=== PATIENT | male | born 1960 | race Caucasian/White ===

== ENCOUNTER 2017-07-20 06:07 | Day surgery (SDC) | payer OTHER ==
[~2017-07-20 06:07] MED LIST: CEFAZOLIN 2 GM-D5W BAG** 2 GM/50 ML ML IV ONE; Lactated Ringers 1,000 ML IV ONE
[2017-07-20] MEDS ORDERED: SUBLIMAZE 100 MCG/2 ML IV ONE (06:08)
[2017-07-20] MEDS ORDERED: Zofran 4 MG/2 ML VIAL IV ONE (06:08)
[2017-07-20] MEDS ORDERED: TORAdol 30 mg Injection IV ONE (06:08)
[2017-07-20] MEDS ORDERED: Decadron 4 MG INJ IV ONE (06:08)
[2017-07-20] MEDS ORDERED: DIPRIVAN 200 MG/20 ML IV ONE (06:08)
[2017-07-20] MEDS ORDERED: Lactated Ringers 1,000 ML IV SCH (06:30)
[2017-07-20] MEDS ORDERED: Sensorcaine 0.25% 10 ML ONE (06:33)
[2017-07-20] MEDS ORDERED: XYLOCAINE 1%/Epi 1:100000 MDV 20 ML ONE (07:47)
[2017-07-20 08:53] VITALS: O2SAT 95
[2017-07-20 09:43] VITALS: BP 155/81; PULSE 76
--- NOTE | 2017-07-20 15:49 | OP ---
This operation was performed at [facility] but the report was dictated at [place], [place] on 07/20/2017 at 0817 hours. SURGERY DATE/TIME 07/20/2017 0745 PREOPERATIVE DIAGNOSIS: Right knee foreign body. POSTOPERATIVE DIAGNOSIS: Right knee foreign body. PROCEDURE: Foreign body removal right knee. SURGEON: Armando Sevilla M.d. HEAVY MACHINERY OPERATOR: Carmen. COMPLICATIONS: None. ESTIMATED BLOOD LOSS: Less than 10 cc. TOURNIQUET TIME: Tourniquet time was 10 minutes at 275 mm of Mercury, ITEM REMOVED: 1.5 inch piece of 16-gauge wire. No associated pus. Cultures were taken. INDICATIONS FOR PROCEDURE: The patient is a 57 year-old gentleman who has knee arthritis on the right side, but also had a foreign body that was stuck in the medial portion of the right knee proximal to the patella. He had an x-ray showing this foreign body. He wanted it removed, as he was having some pain around the area. He denied any fever, nausea or vomiting. He did have tricompartmental arthritis which was causing pain in the knee as well. However, we elected to proceed with foreign body removal of the right knee. We discussed the risks, benefits, alternatives to surgery. Risks include bleeding, infection, need for further surgery, continued pain, damage to the nerves, arteries, veins around the surgery. The alternatives included nonoperative treatment. Patient elected to have the foreign body removed operatively. DESCRIPTION OF PROCEDURE AND FINDINGS: The patient was seen in the preoperative area. The right knee was marked. He signed his consent for the above-stated procedure. He was taken back to the operative suite, laid supine on a regular table. He was intubated by Anesthesia. All bony prominences were padded. Preoperative antibiotics were held to allow for cultures. We used C-arm fluoroscopy to nilsa out the location of the foreign body. We then made an incision approximately 1 inch in length over the foreign body, incised the skin with a 15-blade scalpel, dissected using pickups and tenotomy scissors and Bovie electrocautery for hemostasis. We identified the wire fragment and we were able to remove it using a hemostat. The area left as a void after removing the wire was cultured. No pus was encountered. No significant foreign body reaction was seen. We then gave the antibiotics. We irrigated the wound. We closed it with 2-0 Vicryl suture. We closed the tissue with 3-0 Monocryl, with Steri-Strips on the skin. Sterile dressing composed of Adaptic, 4x4s, ABDs, sterile gauze, cast padding, and Bossman wrap were applied to the knee. Patient was extubated in the operating room and taken to the Post Anesthetic Care Unit in stable condition. A total of 20 cc of 1% lidocaine with epinephrine was used on the knee for pain control. PLAN: The plan for the patient will be to bear weight as tolerated. Activity as tolerated. He may return to full duty at work starting this coming Monday. The sponge and needle counts were correct. He will be discharged home once he meets criteria.
--- NOTE | 2017-07-21 08:05 | XRAY ---
Exam: AP C-arm image of the right knee from 1814 hrs. on 07/20/2017. Comparison: Upright 3 view right knee series from 07/04/2017. Indication: Foreign body removal. Findings: 6 seconds of fluoroscopy time was used intraoperatively. A single AP C-arm image including the distal right femur/thigh and a very small portion of the right knee joint was obtained. The curvilinear metallic foreign body density projected just medial to the distal right femoral shaft is no longer seen. Minimal soft tissue air is seen at the site where the foreign body was previously located. Most of the right knee joint space is not included on this image. Impression: 1. Successful removal of 2.1 cm in diameter thin metallic apparent wire fragment from the soft tissues medial to the distal right femur..
--- NOTE | 2017-07-24 14:36 | XRAY ---
6 seconds fluoroscopy time in surgery for foreign body removal.
== END 2017-07-20 09:53 | disposition home or self-care (01) ==
LOC: SDC 06:07
PROVIDERS: ATTEND Orthopaedic Surgery
PROC: 0JCN0ZZ Extirpation of Matter from Right Lower Leg Subcutaneous Tissue and Fascia, Open Approach (ICD-10-PCS; principal; 2017-07-20)
DX: S81.041A Puncture wound with foreign body, right knee, initial encounter (principal); X58.XXXA Exposure to other specified factors, initial encounter
CPT/HCPCS: 01382; 73560; 76000; 87070; J0690; J1100; J1885; J2405; J2704; J3010

== ENCOUNTER 2018-05-08 07:18 | Emergency (ER) | payer OTHER ==
[2018-05-08] MEDS ORDERED: BABY ASPIRIN 81 MG CHEW PO ONE (07:27)
[2018-05-08] MEDS ORDERED: Nitrostat 0.4 MG (ED) SL ONE ×2 (07:27→07:35)
--- NOTE | 2018-05-08 07:27 | ERPHSYRPT ---
- History of Present Illness Time Seen by Provider: 05/08/18 07:25 Historian: patient, family Physician History: 58 y/o diabetic white male s/p 3v cabg 01/08/18, presents with one day h/o intermittent left chest pain. pt is on plavix and asa but did not take asa this am. pts pain today began at 0500. pt describes pain as a pressure or achiness without radiation. pt denies soa and pain is a 6/10. pt did have diaphoresis and one episode of n/v yesterday. pts ciaio counter molder is dr. mcgee and cardiothoracic surgeon at [facility] Timing/Duration: yesterday Activities at Onset: activity (physical rehab) Quality: aching, pressure Location: other (left chest ) Chest Pain Radiation: no radiation Severity of Pain-Max: moderate Severity of Pain-Current: moderate Associated Symptoms: nausea, vomiting, diaphoresis, No palpitations, No abdominal pain, No shortness of breath, No cough, No hurts to breathe, No weakness, No headache, No dizziness Prior Chest Pain/Cardiac Workup: cardiac cath, heart attack, recent hospitalization (3 v cabg 01/08/18) Nitro Today/Relief: no nitro taken today Aspirin Treatment Today: no aspirin today Allergies/Adverse Reactions: No Known Drug Allergies Allergy (Verified 07/20/17 06:12) Home Medications: Aspirin 81 mg PO DAILY 10/14/12 [History] Multivitamin [Men's Multi-Vitamin] 1 each PO DAILY 10/14/12 [History] Omeprazole [Prilosec] 10 mg PO DAILY 11/17/12 [History] Metformin HCl 500 mg [Glucophage 500 MG] 500 mg PO BID 07/19/17 [History] metHOTREXate sodium [Methotrexate] 2.5 mg PO DAILY 07/19/17 [History] Atorvastatin Calcium [Lipitor] 80 mg PO DAILY 05/08/18 [History] Clopidogrel Bisulfate [Clopidogrel] 75 mg PO DAILY 05/08/18 [History] Metoprolol Tartrate 50 mg [Lopressor 50 MG] 50 mg PO DAILY 05/08/18 [ History] Hx Tetanus, Diphtheria Vaccination/Date Given: Yes Hx Influenza Vaccination/Date Given: Yes Hx Pneumococcal Vaccination/Date Given: No - Review of Systems Constitutional: No Symptoms Eyes: No Symptoms Ears, Nose, & Throat: No Symptoms Respiratory: No Symptoms, No Cough, No Dyspnea, No Stridor, No Wheezing Cardiac: Chest Pain, No Palpitations, No Syncope Abdominal/Gastrointestinal: Nausea, Vomiting, No Abdominal Pain, No Diarrhea, No Constipation Genitourinary Symptoms: No Symptoms, No Dysuria, No Frequency, No Hematuria Musculoskeletal: No Symptoms Skin: No Symptoms Neurological: No Symptoms Psychological: No Symptoms Endocrine: No Symptoms Hematologic/Lymphatic: No Symptoms Immunological/Allergic: No Symptoms All Other Systems: Reviewed and Negative - Past Medical History Pertinent Past Medical History: Yes Neurological History: Other ENT History: No Pertinent History Cardiac History: Other Respiratory History: Sleep Apnea Endocrine Medical History: Diabetes Type II Musculoskeletal History: Osteoarthritis, Rheumatoid Arthritis GI Medical History: GERD History: Other Psycho-Social History: No Pertinent History Male Reproductive Disorders: No Pertinent History Other Medical History: Hear cath, charcot-diana tooth, kidney stones - Past Surgical History Past Surgical History: Yes Neuro Surgical History: No Pertinent History Cardiac: Cardiac Catheterization, Other Respiratory: No Pertinent History Gastrointestinal: Hernia Repair Genitourinary: No Pertinent History Musculoskeletal: Orthopedic Surgery Male Surgical History: No Pertinent History Other Surgical History: rotator cuff repair, lt elbow, rt ft, shira knee arthroplasty, lt hernia, foot surgery. - Social History Smoking Status: Never smoker Exposure to second hand smoke: No Drug Use: none Patient Lives Alone: No Significant Family History: no pertinent family hx - Nursing Vital Signs Nursing Vital Signs: Initial Vital Signs Temperature 97.7 F 05/08/18 07:21 Pulse Rate 70 05/08/18 07:21 Respiratory Rate 16 05/08/18 07:21 Blood Pressure 179/98 05/08/18 07:21 O2 Sat by Pulse Oximetry 97 05/08/18 07:21 Pain Scale Pain Intensity 4 - Physical Exam General Appearance: mild distress, alert, anxiety Eye Exam: PERRL/EOMI, eyes nml inspection Ears, Nose, Throat Exam: normal ENT inspection Neck Exam: normal inspection, non-tender, supple, full range of motion Respiratory Exam: normal breath sounds, chest tenderness, lungs clear, airway intact, No respiratory distress, No accessory muscle use, No rhonchi, No wheezing, No stridor Cardiovascular Exam: regular rate/rhythm, normal heart sounds, normal peripheral pulses Gastrointestinal/Abdomen Exam: soft, normal bowel sounds, No tenderness, No distention, No mass, No guarding Rectal Exam: not done Back Exam: normal inspection, normal range of motion, No CVA tenderness Extremity Exam: normal inspection, normal range of motion, pelvis stable Neurologic Exam: alert, oriented x 3, cooperative, processing analyst II-XII nml as tested Skin Exam: normal color, warm, dry Lymphatic Exam: No adenopathy - Course Nursing assessment & vital signs reviewed: Yes EKG Interpreted by Me: RATE (71), Sinus Rhythm, NORMAL AXIS, NORMAL INTERVALS, NORMAL QRS, Other (no sig change from ekg dated 07/18/17) Ordered Tests: Active Orders 24 hr Category Date Time Status Network Analyst STAT Care 05/08/18 07:27 Active EKG-ER Only STAT Care 05/08/18 07:27 Active IV Insertion STAT Care 05/08/18 07:27 Active Pulse Oximetry (ED) STAT Care 05/08/18 07:27 Active CHEST 1 VIEW (PORTABLE) Stat Exams 05/08/18 07:27 Completed CHEST WITH CONTRAST [CT] Stat Exams 05/08/18 08:16 Completed GALLBLADDER [US] Stat Exams 05/08/18 09:31 Completed CBC W DIFF Stat Lab 05/08/18 07:45 Completed CMP Stat Lab 05/08/18 07:45 Completed D-DIMER QUANTITATION Stat Lab 05/08/18 07:45 Completed NT PRO BNP Stat Lab 05/08/18 07:45 Completed PROTIME WITH INR Stat Lab 05/08/18 07:45 Completed TROPONIN Q3H Lab 05/08/18 07:45 Completed TROPONIN Q3H Lab 05/08/18 10:28 Completed TROPONIN Q3H Lab 05/08/18 13:30 Ordered TROPONIN Q3H Lab 05/08/18 16:30 Ordered TROPONIN Q3H Lab 05/08/18 19:30 Ordered Medication Summary Generic Name Dose Route Start Last Admin Trade Name Freq PRN Reason Stop Dose Admin Sodium Chloride 1,000 mls @ 100 mls/hr 05/08/18 07:30 05/08/18 07:37 Sodium Chloride 0.9% 1000 Ml IV 06/07/18 07:29 100 mls/hr .Q10H HARRY Administration Discontinued Medications Generic Name Dose Route Start Last Admin Trade Name Freq PRN Reason Stop Dose Admin Aspirin 324 mg 05/08/18 07:27 05/08/18 07:37 Baby Aspirin 81 Mg Chew PO 05/08/18 07:28 324 mg STAT ONE Administration Aspirin Confirm 05/08/18 07:35 Baby Aspirin 81 Mg Chew Administered 05/08/18 07:36 Dose 324 mg .ROUTE .STK-MED ONE Morphine Sulfate 2 mg 05/08/18 07:32 05/08/18 07:38 Morphine Sulfate 2 Mg Inj IV 05/08/18 07:33 2 mg STAT ONE Administration Morphine Sulfate Confirm 05/08/18 07:35 Morphine Sulfate 2 Mg Inj Administered 05/08/18 07:36 Dose 2 mg .ROUTE .STK-MED ONE Nitroglycerin 0.4 mg 05/08/18 07:27 05/08/18 07:37 Nitrostat 0.4 Mg (Ed) SL 05/08/18 07:28 0.4 mg STAT ONE Administration Nitroglycerin Confirm 05/08/18 07:35 Nitrostat 0.4 Mg (Ed) Administered 05/08/18 07:36 Dose 0.4 mg SL .STK-MED ONE Ondansetron HCl 4 mg 05/08/18 07:31 05/08/18 07:38 Zofran 4 Mg/2 Ml Vial IV 05/08/18 07:32 4 mg STAT ONE Administration Ondansetron HCl Confirm 05/08/18 07:35 Zofran 4 Mg/2 Ml Vial Administered 05/08/18 07:36 Dose 4 mg .ROUTE .STK-MED ONE Lab/Rad Data: Laboratory Result Diagrams 05/08/18 07:45 05/08/18 07:45 Laboratory Results 05/08/18 05/08/18 05/08/18 Range/Units 10:28 07:45 07:45 WBC (4.0-10.5) K/mm3 RBC (4.1-5.6) M/mm3 Hgb (12.5-18.0) gm/dl Hct (42-50) % MCV (78-100) fl MCH (26-32) pg MCHC (32-36) g/dl RDW (11.5-14.0) % Plt Count (150-450) K/mm3 MPV (6-9.5) fl Gran % (36.0-66.0) % Eos # (Auto) (0-0.5) Absolute Lymphs (auto) (1.0-4.6) Absolute Monos (auto) (0.0-1.3) Lymphocytes % (24.0-44.0) % Monocytes % (0.0-12.0) % Eosinophils % (0.00-5.0) % Basophils % (0.0-0.4) % Absolute Granulocytes (1.4-6.9) Basophils # (0-0.4) PT 12.5 (8.83-12.87) SECONDS INR 1.07 (0.8-3.0) D-Dimer 1104 H* (215-500) ng/mL Sodium (137-145) mmol/L Potassium (3.5-5.1) mmol/L Chloride (98-107) mmol/L Carbon Dioxide (22-30) mmol/L Anion Gap (5-15) MEQ/L BUN (9-20) mg/dL Creatinine (0.66-1.25) mg/dL Estimated GFR ML/MIN Glucose (74-106) mg/dL Calcium (8.4-10.2) mg/dL Total Bilirubin (0.2-1.3) mg/dL AST (17-59) U/L ALT (0-50) U/L Alkaline Phosphatase (38-126) U/L Troponin I < 0.012 < 0.012 (0.000-0.034) ng/mL NT-Pro-B Natriuret Pep (0-900) pg/mL Serum Total Protein (6.3-8.2) g/dL Albumin (3.5-5.0) g/dL 05/08/18 05/08/18 Range/Units 07:45 07:45 WBC 8.9 (4.0-10.5) K/mm3 RBC 5.14 (4.1-5.6) M/mm3 Hgb 15.8 (12.5-18.0) gm/dl Hct 45.6 (42-50) % MCV 88.7 (78-100) fl MCH 30.7 (26-32) pg MCHC 34.6 (32-36) g/dl RDW 14.7 H (11.5-14.0) % Plt Count 181 (150-450) K/mm3 MPV 10.3 H (6-9.5) fl Gran % 79.8 H (36.0-66.0) % Eos # (Auto) 0.23 (0-0.5) Absolute Lymphs (auto) 0.96 L (1.0-4.6) Absolute Monos (auto) 0.57 (0.0-1.3) Lymphocytes % 10.8 L (24.0-44.0) % Monocytes % 6.4 (0.0-12.0) % Eosinophils % 2.6 (0.00-5.0) % Basophils % 0.4 (0.0-0.4) % Absolute Granulocytes 7.13 H (1.4-6.9) Basophils # 0.04 (0-0.4) PT (8.83-12.87) SECONDS INR (0.8-3.0) D-Dimer (215-500) ng/mL Sodium 142 (137-145) mmol/L Potassium 4.0 (3.5-5.1) mmol/L Chloride 103 (98-107) mmol/L Carbon Dioxide 26 (22-30) mmol/L Anion Gap 16.4 H (5-15) MEQ/L BUN 13 (9-20) mg/dL Creatinine 0.90 (0.66-1.25) mg/dL Estimated GFR > 60.0 ML/MIN Glucose 229 H (74-106) mg/dL Calcium 9.8 (8.4-10.2) mg/dL Total Bilirubin 0.70 (0.2-1.3) mg/dL AST 22 (17-59) U/L ALT 27 (0-50) U/L Alkaline Phosphatase 145 H (38-126) U/L Troponin I (0.000-0.034) ng/mL NT-Pro-B Natriuret Pep 108 (0-900) pg/mL Serum Total Protein 7.7 (6.3-8.2) g/dL Albumin 4.4 (3.5-5.0) g/dL - Progress Progress: improved Air Movement: good Progress Note: 05/08/18 11:[address] jose r joseph. i reviewed pt hx, condition, lab, ekg, xray findings. he recommends ok to discharge to home. he will arrange outpt eval/tx for acalculous cholecystitis Blood Culture(s) Obtained: No Antibiotics given: No Counseled pt/family regarding: lab results, diagnosis, need for follow-up, rad results - Departure Time of Disposition: 11:22 Departure Disposition: Home Clinical Impression: Acalculous cholecystitis Condition: Good Critical Care Time: No Referrals: NORHT JOSEPH [Primary Care Provider] - Additional Instructions: avoid fatty, greasy spicy foods. follow up with dr. jose r joseph for further management. drink plenty of fluids.
[2018-05-08] MEDS ORDERED: Sodium Chloride 0.9% 1000 ML 1,000 ML IV SCH (07:30)
[2018-05-08] MEDS ORDERED: Zofran 4 MG/2 ML VIAL IV ONE (07:31)
[2018-05-08] MEDS ORDERED: MORPHINE SULFATE 2 MG INJ IV ONE (07:32)
[2018-05-08] MEDS ORDERED: BABY ASPIRIN 81 MG CHEW ONE (07:35)
[2018-05-08] MEDS ORDERED: Zofran 4 MG/2 ML VIAL ONE (07:35)
[2018-05-08] MEDS ORDERED: MORPHINE SULFATE 2 MG INJ ONE (07:35)
[2018-05-08] MEDS ORDERED: Sodium Chloride 0.9% 1000 ML 1,000 ML ONE (07:35)
[2018-05-08 07:58] LABS: BASOPHIL % 0.4 % (0.0-0.4); Basophil (Absolute #) 0.04 (0-0.4); Eosinophil % 2.6 % (0.00-5.0); Eosinophil (Absolute #) 0.23 (0-0.5); Granulocyte Absolute (ANC) 7.13 (1.4-6.9); Granulocytes % 79.8 % (36.0-66.0); Hematocrit 45.6 % (42-50); Hemoglobin 15.8 gm/dl (12.5-18.0); Lymphocyte (Absolute #) 0.96 (1.0-4.6); Lymphocytes % 10.8 % (24.0-44.0); Mean Cell Volume 88.7 fl (78-100); Mean Corpuscular Hemoglobin 30.7 pg (26-32); Mean Corpuscular Hgb Concent. 34.6 g/dl (32-36); Mean Platelet Volume 10.3 fl (6-9.5); Monocyte (Absolute #) 0.57 (0.0-1.3); Monocytes % 6.4 % (0.0-12.0); Platelet Count 181 K/mm3 (150-450); Red Blood Count 5.14 M/mm3 (4.1-5.6); Red Cell Distribution Width 14.7 % (11.5-14.0); White Blood Count 8.9 K/mm3 (4.0-10.5)
[2018-05-08 08:03] LABS: INR 1.07 (0.8-3.0)
[2018-05-08 08:45] LABS: ALBUMIN 4.4 g/dL (3.5-5.0); ALKALINE PHOSPHATASE 145 U/L (38-126); ANION GAP 16.4 MEQ/L (5-15); BLOOD UREA NITROGEN 13 mg/dL (9-20); CHLORIDE 103 mmol/L (98-107); Calcium 9.8 mg/dL (8.4-10.2); Carbon Dioxide 26 mmol/L (22-30); Glucose 229 mg/dL (74-106); NT PRO BNP 108 pg/mL (0-900); SGOT/AST 22 U/L (17-59); SGPT/ALT 27 U/L (0-50); SODIUM 142 mmol/L (137-145); Total Protein 7.7 g/dL (6.3-8.2)
--- NOTE | 2018-05-08 08:53 | XRAY ---
Indication: Left chest pain, cough, nausea, and vomiting. Comparison: None Portable chest is clear with incidental tiny left lung calcified granuloma. Heart is not enlarged with previous CABG surgery. Bony thorax intact with mild osteopenia and degenerative changes. Impression: Nonacute chest with chronic features.
--- NOTE | 2018-05-08 09:20 | XRAY ---
Indication: Chest pain, short of breath, and vomiting. D-dimer 1104. Multiple contiguous axial images obtained through the chest using 80 cc Isovue 370 contrast and PE protocol. Comparison: None There is good opacification of the pulmonary arteries to include the lobar and segmental branches. No filling defect or pulmonary embolus. Heart is not enlarged and demonstrates previous CABG surgery. Aorta is normal in course and caliber. No pathologic mediastinal/hilar lymphadenopathy. Examination of the lung parenchyma demonstrates mild bilateral dependent atelectasis. No suspicious pulmonary mass, infiltrate, or effusion. Bony thorax intact with minimal degenerative changes throughout the spine, sternotomy wires, and moderate degenerative changes of both shoulders. Limited upper abdomen demonstrates abnormal distended gallbladder with wall thickening/stranding but no gallstones concerning for acalculous cholecystitis. Mild descending duodenal wall thickening/stranding presumed reactive to gallbladder disease. Mild fatty liver, 13.3 cm splenomegaly, and 1 cm right renal cyst. Impression: 1. Negative pulmonary embolus. No acute cardiopulmonary abnormalities. 2. Abnormal gallbladder as detailed concerning for acalculous cholecystitis. Suspect reactive descending duodenitis. Gallbladder sonogram may yield further information. 3. Fatty liver, splenomegaly, and right renal cyst. CT DI 19.13
[2018-05-08 10:10] VITALS: O2SAT 98
--- NOTE | 2018-05-08 10:29 | XRAY ---
Indication: Abnormal gallbladder on same-day CT. Two-dimensional gallbladder sonogram performed. Comparison: None Gallbladder moderately distended without gallstones. There is gallbladder wall thickening measuring 3.1 mm with tiny pericholecystic fluid concerning for acalculous cholecystitis. Common bile duct measures 4 mm. No intrahepatic biliary distention. Remaining visualized portions of the liver, pancreas, and right kidney appear sonographically unremarkable. Right kidney measures 10.1 cm in length. Impression: Distended gallbladder with wall thickening and pericholecystic fluid but no gallstones. Rule out acalculous cholecystitis.
[2018-05-08 11:48] VITALS: BP 126/81; PULSE 62
== END 2018-05-08 11:56 | disposition home or self-care (01) ==
LOC: ED 07:18
DX: K81.9 Cholecystitis, unspecified (principal); R11.2 Nausea with vomiting, unspecified; R61 Generalized hyperhidrosis; E11.9 Type 2 diabetes mellitus without complications; Z95.1 Presence of aortocoronary bypass graft; Z79.01 Long term (current) use of anticoagulants; Z79.899 Other long term (current) drug therapy; I25.2 Old myocardial infarction; Z79.84 Long term (current) use of oral hypoglycemic drugs
CPT/HCPCS: 36000; 36415; 71045; 71260; 76705; 80053; 83880; 84484; 85025; 85379; 85610; 93005; 93041; 96360; 96374; 96375; 99285; J2270; J2405; A9270-GY

== ENCOUNTER 2023-10-06 07:05 | Day surgery (SDC) | payer OTHER ==
[~2023-10-06 07:05] MED LIST changes: -CEFAZOLIN 2 GM-D5W BAG** 2 GM/50 ML ML IV ONE; -Lactated Ringers 1,000 ML IV ONE; +Naropin 0.5% 30 ML VIAL*** 123.125 MG, TORAdol 30 mg Injection*** 15 MG, Epinephrine Pr... IV ONE
[2023-10-06] MEDS ORDERED: CEFAZOLIN 2 GM-D5W BAG** 2 GM/50 ML ML IV ONE (07:11)
[2023-10-06] MEDS ORDERED: Lactated Ringers 1,000 ML IV ONE ×3 (07:11→12:06)
[2023-10-06] MEDS ORDERED: TYLENOL EXTRA STRENGTH 500 MG ONE (07:19)
[2023-10-06] MEDS ORDERED: Decadron 4 MG ONE (07:20)
[2023-10-06] MEDS ORDERED: NEURONTIN ONE (07:20)
[2023-10-06] MEDS ORDERED: celeBREX 100 MG ONE (07:20)
[2023-10-06] MEDS: TYLENOL EXTRA STRENGTH 500 MG PO ONE (07:21)
[2023-10-06] MEDS: celeBREX 100 MG PO ONE (07:22)
[2023-10-06] MEDS: Decadron 4 MG PO ONE (07:22)
[2023-10-06] MEDS: NEURONTIN PO ONE (07:22)
[2023-10-06] MEDS: Lactated Ringers 1,000 ML IV SCH (07:26)
[2023-10-06] MEDS: CEFAZOLIN 2 GM-D5W BAG** 2 GM/50 ML ML IV SCH (07:27)
[2023-10-06 07:31] VITALS: RESP 18
[2023-10-06] MEDS ORDERED: Versed 2 MG/2 ML Injection ONE (09:14)
[2023-10-06] MEDS ORDERED: Naropin 0.5% 30 ML VIAL ONE (09:16)
[2023-10-06] MEDS ORDERED: Decadron 4 MG INJ ONE (09:16)
[2023-10-06] MEDS ORDERED: SUBLIMAZE 100 MCG/2 ML ONE ×2 (10:31→13:32)
[2023-10-06] MEDS ORDERED: TRANEXAMIC 1,000 MG/100ML-NACL 1,000 MG/100 ML PIGGYBACK IV ONE (10:56)
[2023-10-06] MEDS ORDERED: Ephedrine Sulfate 50 MG/ML ONE (12:24)
[2023-10-06] MEDS ORDERED: PHENYLEPHRINE HCL ONE (12:24)
[2023-10-06] MEDS ORDERED: DIPRIVAN 200 MG/20 ML IV ONE (12:25)
[2023-10-06] MEDS ORDERED: Hydromorphone 1 mg/ml Injection ONE (13:41)
--- NOTE | 2023-10-06 14:19 | XRAY ---
Indication: Follow-up surgery. Comparison: September 05, 2023 Portable AP/crosstable lateral left knee demonstrates interval total knee arthroplasty with intact prosthesis. Also new postoperative soft tissue swelling, soft tissue emphysema, and anterior cutaneous andrew. Stable osteopenia and extensive vascular calcifications.
[2023-10-06 14:41] VITALS: BP 110/61; PULSE 80; TEMP 97.1; O2SAT 92
--- NOTE | 2023-10-09 11:24 | OP ---
PROCEDURE DATE/TIME: 10/06/2023 1053 PREOP DIAGNOSES: Left knee rheumatoid arthritis. POSTOP DIAGNOSES: Left knee rheumatoid arthritis. PROCEDURE: Left total knee replacement ATTENDING PHYSICIAN: Aamir Anthony M.D. SUSTAINABLE DEVELOPMENT POLICY ANALYST: Devora Horton. ANESTHESIA: General plus spinal plus adductor canal block. IMPLANTS: Aliya Persona for standard PS femur 12 poly, an E tibia, a 14 x 30 mm short stem and a 32 mm patella, which is 8.5 mm thick. FINDINGS: Severe patellofemoral and medial compartment degenerative joint disease with bone on bone and large osteophytes. ESTIMATED BLOOD LOSS: 100 cc. SPECIMEN: None. DRAIN: None. FLUIDS: Per anesthesia record. TOURNIQUET TIME: 63 minutes. COMPLICATIONS: None. INDICATIONS FOR PROCEDURE: The patient is a 63-year-old white male with painful left knee refractory to conservative care. He wished to have this replaced for pain relief. DESCRIPTION OF PROCEDURE: Patient seen in holding room. Identified the left knee as correct and this initialed by me. He had anesthesia and then 2 gm of Kefzol and 1000 mg of tranexamic acid. He was taken to the OR where he had spinal anesthesia and LMA airway. He had a block. He was positioned supine with a bump under his left hip, had sterile prep and drape to the left lower extremity. Tourniquet was inflated on upper thigh to 250 mm of Mercury. Total tourniquet time was 63 minutes. A midline incision was made medial through the tibia tubercle to about 6 cm above superior pole of the patella A medial parapatellar approach was made splitting the quadriceps tendon 10%/90%. The patella was everted. The fat pad was excised about 50%. The patella was fairly deformed with decreased thickness at the inferior pole. Difficulty of the Aliya reamer therefore the patella was cut by hand using a saw trying to take off the same thickness of bone as the patella implant which is 8.5 mm. The drill was then drilled down the center of the femoral and tibial canal. The guidewire was placed on the femur with 5 of valgus for left knee, a 10 mm distal cut was made. The tibia is then prepared with 5 posterior slit taking 4 mm off of the medial side in neutral varus. The femoral sizing guide was applied and the femur had a great deal of deformity with deficient lateral femoral condyle and minimal trochlear notch. A right side line was drawn as well as a transepicondylar access judging off right side line and off the epicondyle trying to gauge rotation. Femoral sizer was applied and set to size 4 femur left in 3 external rotation. The cutting block was applied. The anterior chamfer and posterior chamfer cuts were made. The menisci were excised. The flexion-extension gaps were checked. There was increased flexion gap on the lateral side and release was done on the medial side. The tibial base plate was applied in line with the medial third tibia tubercle this was pinned in place. The femur size 4 was applied and then a trial medial congruent poly is used. There was increased deep gapping with deep flexion on the lateral side of about 3 to 4 mm of some lift off. Therefore, it was decided that we would need PS or more constrained field. The notch cut was deepened with the guide to allow for the PS femur. The PS femur trial was tried. The CCK side to tight in the box with too much friction and it was decided on the PS. Therefore, the lug nuts were drilled out on the femoral component. Tibia was reamed to a depth of the stem and the Keel punch was used. The patellar button was reamed with a guide with three holes. The trial patella had been tried and did track well. The bony surfaces were irrigated and dried. The femoral canal was plugged with bone plug. The ropivacaine solution 60 cc was injected circumferentially around the capsule. Two batches of Biomet bone cement was mixed in a vacuum condition and then injected on the bony structures with a gun and onto the components. The tibial component applied first and then the femoral component, set in full extension with 10 mm spacer. Patellar button was placed and held with a clamp. The tourniquet was released. Hemostasis was obtained with electrocautery. All cement had hardened and excess cement was trimmed off. The knee was thoroughly irrigated and the knee retried and it was felt we could give it 12 mm PS spacer to take up some of the space in the lateral compartment this was replaced by the true 12 mm PS component with good patella tracking. The knee was felt stable in varus and valgus stressing but did have 3 to 4 mm lift off with extreme flexion. The knee flex about 105. The knee was thoroughly irrigated again. Tourniquet had been dropped after components were placed and there was minimal bleeding. The medial parapatellar approach was closed with interrupted #2 MaxBraid suture and then subcu with 2-0 Vicryl and the skin with andrew. Sterile dressings were applied. DISPOSITION: The patient will be weight bearing as tolerated. He will go home today if he is comfortable. May shower postoperative day five. [place] out in 10-12 days.
== END 2023-10-06 17:10 | disposition home or self-care (01) ==
LOC: SDC 07:05 → UNDOADMOB 14:10 → MED SURG 14:10 → EDSTATUS 14:25 → SDC 17:10
PROVIDERS: ATTEND Orthopaedic Surgery
DX: M06.862 Other specified rheumatoid arthritis, left knee (principal); E11.9 Type 2 diabetes mellitus without complications
CPT/HCPCS: 73560; 82947; J0690; J1100; J1170; J2250; J2371; J2704; J2795; J3010; A9270-GY

== ENCOUNTER 2024-02-14 08:14 | Day surgery (SDC) | payer OTHER ==
[2024-02-14] MEDS ORDERED: TRANEXAMIC 1,000 MG/100ML-NACL 1,000 MG/100 ML PIGGYBACK IV ONE (08:53)
[2024-02-14] MEDS ORDERED: TYLENOL EXTRA STRENGTH 500 MG ONE (08:53)
[2024-02-14] MEDS ORDERED: CEFAZOLIN 2 GM/100 ML NaCl 2 GM/100 ML IVPB IV ONE (08:53)
[2024-02-14] MEDS ORDERED: celeBREX 100 MG ONE (08:54)
[2024-02-14] MEDS ORDERED: Lactated Ringers 1,000 ML IV ONE (08:54)
[2024-02-14] MEDS ORDERED: Decadron 4 MG ONE (08:54)
[2024-02-14] MEDS ORDERED: NEURONTIN ONE (08:54)
[2024-02-14] MEDS: celeBREX 100 MG PO ONE (08:58)
[2024-02-14] MEDS: Decadron 4 MG PO ONE (08:59)
[2024-02-14] MEDS: NEURONTIN PO ONE (08:59)
[2024-02-14] MEDS: TYLENOL EXTRA STRENGTH 500 MG PO ONE (08:59)
[2024-02-14] MEDS: TRANEXAMIC 1,000 MG/100ML-NACL 1,000 MG/100 ML PIGGYBACK IV SCH (09:01)
[2024-02-14] MEDS: CEFAZOLIN 2 GM/100 ML NaCl 2 GM/100 ML IVPB IV SCH (09:01)
[2024-02-14] MEDS: Lactated Ringers 1,000 ML IV SCH (09:01)
[2024-02-14] MEDS ORDERED: Sodium Chloride 0.9% 1000 ML 1,000 ML ONE (09:40)
[2024-02-14] MEDS: Sodium Chloride 0.9% 1000 ML 1,000 ML IV SCH (09:45)
[2024-02-14] MEDS ORDERED: Decadron 4 MG INJ ONE (09:56)
[2024-02-14] MEDS ORDERED: Xylocaine-Mpf 2% 5 Ml Vial ONE (09:56)
[2024-02-14] MEDS ORDERED: SUBLIMAZE 100 MCG/2 ML ONE (09:57)
[2024-02-14] MEDS ORDERED: DIPRIVAN 200 MG/20 ML IV ONE ×3 (09:57→12:32)
[2024-02-14] MEDS ORDERED: Versed 2 MG/2 ML Injection ONE (09:57)
[2024-02-14] MEDS ORDERED: Ephedrine Sulfate 50 MG/ML ONE (11:35)
[2024-02-14] MEDS ORDERED: PHENYLEPHRINE HCL ONE (11:55)
[2024-02-14] MEDS ORDERED: Zofran 4 MG/2 ML VIAL ONE (12:50)
--- NOTE | 2024-02-14 15:08 | XRAY ---
Indication: Postop total knee replacement. Comparison: September 05, 2023 AP/crosstable lateral right knee now demonstrates total knee arthroplasty with intact prosthesis. Also new postoperative soft tissue swelling, soft tissue emphysema, and anterior cutaneous andrew. Stable osteopenia and scattered vascular calcifications.
[2024-02-14] MEDS ORDERED: TYLENOL 325 MG PO PRN (15:23)
[2024-02-14] MEDS ORDERED: ZOFRAN ODT 4 MG PO PRN (15:25)
[2024-02-14] MEDS: Naropin 0.5% 30 ML VIAL*** 123.125 MG, TORAdol 30 mg Injection*** 15 MG, Epinephrine Pr... IV ONE (18:09)
[2024-02-14] MEDS: Glucophage 500 MG PO SCH (18:25)
[2024-02-14] MEDS: Oxy-IR 5 MG PO PRN (18:30)
[2024-02-14] MEDS ORDERED: LIPITOR 40MG PO SCH (22:00)
[2024-02-14] MEDS: Lopressor 50 MG PO SCH (23:16)
[2024-02-14] MEDS: ZOCOR 20MG PO SCH (23:17)
[2024-02-15 07:36] VITALS: BP 107/60; PULSE 72; RESP 16; O2SAT 97
--- NOTE | 2024-02-15 07:46 | PCM.DS ---
Discharge Summary Date of Admission: February 14, 2024 Date of Discharge: February 15, 2024 Admitting Physician: Dr. Aamir Anthony Primary Care Provider: REGINA NAVARRO DO Allergies Allergies No Known Drug Allergies Allergy (Verified 01/11/24 14:09) Hospital Summary - Hospital Course Hospital Course: Patient was admitted postop right total knee due to difficulty with physical therapy from a foot drop after nerve block. Patient was seen the next morning and was improving. He was having weakness in dorsiflexion of his ankle which is about 1/5 but had 4/5 dorsiflexion of the great toe and in 3 sensation since yesterday.Afebrile vital signs stable - Vitals & Intake/Output Vital Signs: Vital Signs Temperature 97 F 02/15/24 07:36 Pulse Rate 72 02/15/24 07:36 Respiratory Rate 16 02/15/24 07:36 Blood Pressure 107/60 02/15/24 07:36 O2 Sat by Pulse Oximetry 97 02/15/24 07:36 Intake & Output: Intake & Output 02/12/24 02/13/24 02/14/24 02/15/24 11:59 11:59 11:59 11:59 Intake Total 2040 Output Total 1600 Balance 440 Weight 63.5 kg - Lab Lab Results-Last 24 Hrs: Lab Results-Last 24 Hours 02/14/24 02/15/24 Range/Units 18:24 07:14 POC Glucometer 401 H 191 H (74 to 106) mg/dL - Radiology Exams Ordered Rad Exams-Entire Visit: Radiology Procedures Category Date Time Status KNEE (1 OR 2 VIEW) Routine Exams 02/14/24 14:32 Completed X-ray shows good PS right TKR - Procedures and Test Procedures and Tests throughout Hospitalization: Therapy Orders & Screens 02/14/24 14:15 PT Eval & Treat (MD Order) ONCE Reason for Eval:: right post op total knee Diagnosis: right knee rheumatoid arthritis 02/14/24 14:33 Incentive Spirometry UD Comment: Diagnosis: right knee rheumatoid arthritis Discharge Exam Wound Assessment: Skin/Wound Assessment Wound/Incision Assessment Start: 02/14/24 18:04 Text: Status: Active Freq: Q6H Protocol: Document 02/15/24 02:00 MP (Rec: 02/15/24 03:38 MP [id number]) Wound/Incision Assessment Right Knee Wound Assessment Shift Assessment Wound Type Incision Wound Stage Non Pressure Wound Dressing Status Dry & Intact Drainage Amount None Primary Dressing AQUACEL DRESSING - Discharge Disposition: Home, Self-Care Condition: Stable Prescriptions: New Oxycodone HCl/Acetaminophen [Percocet 5-325 mg Tablet] 1 each PO Q4H PRN PRN 7 Days #25 tablet MDD 6 PRN Reason: Pain Cephalexin Mh 500 mg [Keflex 500 mg] 500 mg PO Q6H 5 Days #20 cap Aspirin EC 325 mg [Ecotrin 325 MG] 325 mg PO DAILY #21 Continue Omeprazole [Prilosec] 40 mg PO DAILY Metformin HCl 500 mg [Glucophage 500 MG] 1,000 mg PO BID Metoprolol Tartrate 50 mg [Lopressor 50 MG] 50 mg PO BID Atorvastatin Calcium [Lipitor] 80 mg PO DAILY icosapent ethyL [Vascepa] 2 cap PO BID Duloxetine HCl 30 mg [Cymbalta 30 MG Capsule] 60 mg PO DAILY Diclofenac Sodium/Misoprostol [Diclofenac-Misoprost 75-0.2 mg] 1 tab PO BID Empagliflozin [Jardiance] 1 tab PO DAILY Clopidogrel Bisulfate [Plavix] 75 mg PO DAILY Discontinued Aspirin 81 mg PO DAILY Hydrocodone/Acetaminophen [Hydrocodone-Acetamin 10-325 mg] 1 tab PO Q6H PRN PRN PRN Reason: Pain Instructions: Knee replacement - Discharge instructions Additional Instructions: DO NOT REMOVE DRESSING, KEEP DRY AND REINFORCE ONLY STARTING POST OP DAY #5, CHANGE DRESSING DAILY OR UNTIL DRAINAGE STOPS WITH DRY DRESSING MAY SHOWER POST OP DAY #5. APPLY ICE NEEDED FOR PAIN FOLLOW KNEE PRECAUTIONS: ELEVATE ABOVE HEAD LEVEL DAILY x 3 FOR 30 MIN, DO NOT PLACE BOLSTER OR PILLOW BEHIND BEND OF KNEE, DO NOT PIVOT, TWIST, OR KNEEL ON OPERATIVE KNEE Follow up with: REGINA NAVARRO DO [Primary Care Provider] - KERRIE MORSE NP [NON-STAFF PHY W/O PRIVILEGES] - 02/29/24 1:30 pm
[2024-02-15] MEDS: Glucophage 500 MG PO SCH (07:47)
[2024-02-15 10:23] VITALS: TEMP 97
--- NOTE | 2024-02-18 12:34 | OP ---
SURGERY DATE/TIME: 02/14/2024 [id number] DIAGNOSIS: Right knee rheumatoid arthritis. PROCEDURE: Right total knee replacement. SURGEON: Aamir Anthony MD LICENSED NUCLEAR CONTROL ROOM OPERATOR: Second scrub. ANESTHESIA: Spinal, plus peripheral block. FINDINGS: Severe arthritis with bony erosion and varus. IMPLANTS: 1) Aliya Persona posterior-stabilized femur, standard width, size 4. 2) Aliya Personalized natural tibia, 5 degrees, right, size E. 3) 35 mm x 9 mm cemented patella. 4) 10 mm PS highly cross-linked size E polyethylene. ESTIMATED BLOOD LOSS: 100 mL. FLUIDS: Per the anesthesia records. SPECIMENS: None. DRAINS: None. COMPLICATIONS: None. INDICATIONS: Patient is a 63-year-old white male with painful right knee. He had a recent left total knee replacement by me and was very happy with this and wished to proceed with knee replacement now for pain relief. DESCRIPTION OF PROCEDURE AND FINDINGS: Patient was seen in the holding room. We identified the right knee as correct. This was initialed by me. He was taken to the OR, where he had spinal anesthesia. He already had a block. He had supine position with a bump under his right hip. Had sterile and prep drape of his right lower extremity. Had 2 g of Kefzol and 1000 mg tranexamic acid. He had time-out performed by me. He had gravity exsanguination of the left and the tourniquet inflated around the upper thigh to 250 mmHg. Total tourniquet time was 48 minutes. A midline incision was made from just medial to the tibial tubercle to about 6 mm above the superior pole of patella. A medial parapatellar approach was made, splitting the quadriceps tendon 10% and 90%. Patella was everted, and the fat pad was excised partially. The drill was drilled down the center of the femoral and tibial canals. The femoral guide rachel was placed first in 5 degrees of valgus with a 10 mm distal cut. The cut had been made after the cutting block had been pinned in place. The tibia was then compared with the intramedullary rachel taking 4 mm off the medial side in neutral varus with a 3-degree posterior slope. The femur was then sized with the sizing guide, and due to significant lateral femoral condyle wear posteriorly, the guide was set in 7 degrees of external rotation which matched the Whitesides and transepicondylar line. The guide was pinned in place, and then the anterior and posterior cuts as well as the anterior chamfer and posterior chamfer cuts were made. Menisci were excised. The trial femur was then pinned in place, and the notch cut was made with a small saw for the PCL. The tibia was then applied with the [address]. The knee could flex from 0 to 115 degrees of flexion. The patellar button was reamed out with the reamer for a size 35 patella with 3 holes. The patella had been reamed from 22 mm thickness down to 14 mm residual thickness for an 8 mm thick patella. The patella was tracking midline with the trial button on. The rotation of the baseplate was marked at the medial one-third of the tibial tubercle. This was then pinned in place and then the large drill and the keel punch were used to punch out the keel. The bony surfaces were irrigated and dried. The femoral canal was plugged with a bone plug. Then, 60 mL of the anesthetic solution containing 30 mL of saline and 30 mL of 0.5% ropivacaine was injected circumferentially around the capsule. Two batches of Aliya cement were mixed on the back table. When it was in a semi-liquid state, this was placed on the dried bony surfaces which had been irrigated with the pulse lavage as well as the components. The tibial component was applied first, and the femoral component was applied. The knee was put in full extension for the trial 10 mm PS insert. The patella button was held with a clamp and the tourniquet was released. Hemostasis was attained with the electrocautery. When all cement had hardened, excess cement was trimmed off the osteotome. The knee was thoroughly irrigated, and the true 10 mm polyethylene was locked into the tray with 0 to 115 degrees of flexion with good stability in flexion and extension, patella tracking midline. The medial parapatellar approach was then closed with alternating #2 Ethibond sutures, and then a running #1 Stratafix suture. The subcutaneous was closed with 2-0 Vicryl and the skin with andrew. Sterile dressings were applied with an Aquacel dressing. Plan is for patient to be weightbearing as tolerated. He will go home with Percocet and Keflex for 5 days. He will have outpatient physical therapy with andrew removed in 10 to 12 days. He can remove the dressing postop day 5 and shower then.
== END 2024-02-15 10:20 | disposition home or self-care (01) ==
LOC: SDC 08:14 → MED SURG 14:15 → SDC 02-15 10:20
PROVIDERS: ATTEND Orthopaedic Surgery
DX: M17.11 Unilateral primary osteoarthritis, right knee (principal); M25.561 Pain in right knee; E11.9 Type 2 diabetes mellitus without complications
CPT/HCPCS: 27447; 73560; 76937; 82947; C1776; J0171; J0690; J1100; J1885; J2250; J2371; J2405; J2704; J2795; J3010; A9270-GY

== ENCOUNTER 2024-05-16 10:15 | Day surgery (SDC) | payer OTHER ==
[2024-05-16 10:46] VITALS: RESP 16
[2024-05-16] MEDS ORDERED: Versed 2 MG/2 ML Injection ONE (11:18)
[2024-05-16] MEDS ORDERED: propofoL IV ONE ×2 (11:18→11:31)
[2024-05-16 11:20] LABS: ANION GAP 12.4 MEQ/L (5-15); Calcium 8.8 mg/dL (8.4-10.2); Creatinine 1 0.89 mg/dL (0.66-1.25); EST GLOMERULAR FILTRATION RATE 94.5 ML/MIN; Potassium 3.9 mmol/L (3.5-5.1)
[2024-05-16 12:36] VITALS: TEMP 97.2; O2SAT 96
[2024-05-16 12:45] VITALS: BP 140/72; PULSE 78
--- NOTE | 2024-05-17 08:44 | OP ---
SURGERY DATE/TIME: 05/16/2024 [id number] PREOPERATIVE DIAGNOSES: 1) Heartburn. 2) Due for colorectal cancer screening. POSTOPERATIVE DIAGNOSES: 1) Moderate to severe gastritis. 2) Colon polyps. 3) Diverticulosis. PROCEDURE: 1) Esophagogastroduodenoscopy. 2) Colonoscopy. SURGEON: Lee Reyes M.D. ANESTHESIA: IV anesthesia. PATIENT CONDITION: Stable. COMPLICATIONS: None. SPECIMEN: 1) Antral biopsy. 2) Polyps x2. INDICATION FOR PROCEDURE: The patient presents with intermittent heartburn symptoms. He is on omeprazole, unclear how compliant he is with that but also has been 15 years since his last colonoscopy and has been having a little irregularity in his bowels. I discussed with patient. He elected to proceed with the EGD and colonoscopy. FINDINGS: Moderate to severe gastritis with erythema, friability and some adherent blood. Colonoscopy with diverticulitis, 2 small polyps. Prep fair. DESCRIPTION OF PROCEDURE: Patient brought to the endoscopy suite, routinely positioned. Time out was performed. IV anesthesia was then induced by Anesthesia. The gastroscope inserted through the mouth, advanced to the third portion of the duodenum. Duodenum was normal in appearance. The stomach just had moderate to severe gastritis with erythema, friability, some adherent blood. Biopsies were taken of the antrum for H pylori. Retroflexion, satisfactory. GE junction normal, esophagus normal. The stomach was suctioned out. Scope was withdrawn. Digital rectal examination, external exam was normal. Digital rectal was normal. The colonoscope was inserted, advanced to the cecum, confirmed by the appendiceal orifice and the ileocecal valve. The preparation was Aronchick fair preparation. Greater than 6 minute withdrawal time. On withdrawal in the cecum, there was a 5 mm semipedunculated polyp, which was taken with a hot snare and then there was a transverse 4 mm hyperplastic-appearing polyp taken with hot snare. There was diffuse colonic diverticulosis. Exam, otherwise, normal. Preparation was Aronchick fair. Patient tolerated the procedure well, was taken to Recovery in stable condition. RECOMMENDATIONS: Per discussion with the family, not really taking the omeprazole everyday. I would recommend a daily PPI, titrate that to his symptoms. As far as the colonoscopy, follow up in a couple of weeks for pathology results. Probably would be 3 to 5 years until his next colonoscopy.
== END 2024-05-16 12:46 | disposition home or self-care (01) ==
LOC: SDC 10:15
PROVIDERS: ATTEND Surgery
DX: Z12.11 Encounter for screening for malignant neoplasm of colon (principal); E11.9 Type 2 diabetes mellitus without complications; I10 Essential (primary) hypertension; R12 Heartburn; K29.70 Gastritis, unspecified, without bleeding; K63.5 Polyp of colon; K57.30 Diverticulosis of large intestine without perforation or abscess without bleeding
CPT/HCPCS: 36415; 80048; 82947; J2250; J2704